=== PATIENT | female | born 1995 | race Hispanic/Latino ===

== ENCOUNTER 2020-10-26 22:07 | Emergency (ER) | payer BC, MEDICAID ==
[~2020-10-26 22:07] MED LIST: PREN1TAB89 PO
[2020-10-26 22:49] LABS: APPEARANCE,URINE Turbid (CLEAR); BILIRUBIN,URINE Negative (NEGATIVE); COLOR,URINE Yellow (YELLOW); GLUCOSE, URINE (UA) Negative (NEGATIVE); KETONES,URINE Negative (NEGATIVE); LEUKOCYTE ESTERASE ,URINE Trace (NEGATIVE); NITRATE,URINE Negative (NEGATIVE); OCCULT BLOOD,URINE Nonhemolyzed Trace (NEGATIVE); PH,URINE 7.5 (5.0-8.0); PROTEIN,URINE Negative (NEGATIVE); UROBILINOGEN,URINE 0.2 mg/dL (0.2-1.0)
[2020-10-26 22:51] LABS: HCG,QUAL RESULT NEGATIVE (NEGATIVE)
[2020-10-26] MEDS ORDERED: MORPHINE SULFATE 4 MG/1ML SYG ONE (22:59)
[2020-10-26] MEDS ORDERED: ONDANSETRON HCL 4 MG/2 ML VIAL ONE (22:59)
[2020-10-26] MEDS ORDERED: KETOROLAC TROMETHAMINE 30MG/ML ONE (22:59)
[2020-10-26] MEDS ORDERED: SODIUM CHLORIDE 0.9% 1000ML 1,000 ML IV ONE (23:00)
[2020-10-26 23:01] LABS: AMORPHOUS SEDIMENT,UR Many /LPF (None Seen); BACTERIA,URINE None Seen /HPF (None Seen); RBC,URINE None Seen /HPF (0-1); SQUAMOUS EPITHELIAL CELL,UR Few /HPF (0-2); WBC,URINE 0-1 /HPF (0-1)
[2020-10-26 23:15] LABS: BASOPHILS % (AUTO) 0.2 % (0.0-5.0); EOSINOPHILS % (AUTO) 0.1 % (0.0-8.0); HEMATOCRIT 38.3 % (36-48); MEAN CORPUSCULAR HEMOGLOBIN 25.3 pg (27.0-33.0); MEAN CORPUSCULAR HGB CONC 32.1 g/dL (32.0-36.0); MEAN CORPUSCULAR VOLUME 78.8 fL (79-99); MONOCYTES % (AUTO) 3.8 % (3.0-13.0); NEUTROPHILS % (AUTO) 85.4 % (40.0-77.0); PLATELET COUNT (AUTO) 293 K/uL (130-400); RED BLOOD CELL COUNT(AUTO) 4.86 MIL/uL (4.00-5.50); RED CELL DISTRIBUTION WIDTH 13.9 % (11.0-15.5); WHITE BLOOD COUNT (AUTO) 15.3 K/uL (4.8-10.8)
[2020-10-26] MEDS ORDERED: TAMSULOSIN HCL 0.4 MG CAP.ER.24H ONE (23:34)
[2020-10-26] MEDS ORDERED: CEFTRIAXONE SODIUM 1 GM ONE (23:34)
[2020-10-26 23:36] LABS: ALBUMIN 3.8 g/dL (3.5-5.0); BILIRUBIN,TOTAL 0.3 mg/dL (0.2-1.0); POTASSIUM 3.5 mmol/L (3.5-5.1); TOTAL PROTEIN, SERUM 8.1 g/dL (6.0-8.3)
== END 2020-10-26 23:57 | disposition home or self-care (01) ==
LOC: EDH 22:07
DX: N20.0 Calculus of kidney (principal); Z72.0 Tobacco use
CPT/HCPCS: 36415; 74176; 80053; 81001; 81025; 83690; 85025; 96361; 96374; 96375; 99284; J0696; J1885; J2270; J2405; J7030

== ENCOUNTER 2021-11-30 14:07 | Emergency (ER) | payer BC ==
[~2021-11-30] VITALS: Ht 172.7 cm; Wt 117.0 kg
[2021-11-30 14:33] LABS: APPEARANCE,URINE Cloudy (CLEAR); BILIRUBIN,URINE Negative (NEGATIVE); COLOR,URINE Yellow (YELLOW); GLUCOSE, URINE (UA) Negative (NEGATIVE); KETONES,URINE Negative (NEGATIVE); LEUKOCYTE ESTERASE ,URINE Small (NEGATIVE); NITRATE,URINE Negative (NEGATIVE); OCCULT BLOOD,URINE Negative (NEGATIVE); PROTEIN,URINE Negative (NEGATIVE)
[2021-11-30 14:50] LABS: BASOPHILS % (AUTO) 0.3 % (0.0-5.0); EOSINOPHILS % (AUTO) 1.1 % (0.0-8.0); HEMATOCRIT 38.2 % (36-48); LYMPHOCYTES % (AUTO) 22.1 % (21.0-51.0); MEAN CORPUSCULAR HEMOGLOBIN 25.6 pg (27.0-33.0); MEAN CORPUSCULAR HGB CONC 31.4 g/dL (32.0-36.0); MEAN CORPUSCULAR VOLUME 81.6 fL (79-99); MONOCYTES % (AUTO) 5.4 % (3.0-13.0); NEUTROPHILS % (AUTO) 70.8 % (40.0-77.0); PLATELET COUNT (AUTO) 252 K/uL (130-400); RED BLOOD CELL COUNT(AUTO) 4.68 MIL/uL (4.00-5.50); RED CELL DISTRIBUTION WIDTH 14.2 % (11.0-15.5); WHITE BLOOD COUNT (AUTO) 9.8 K/uL (4.8-10.8)
[2021-11-30 14:59] LABS: BACTERIA,URINE Few /HPF (None Seen); MUCUS,URINE Moderate LPF (None Seen); SQUAMOUS EPITHELIAL CELL,UR Moderate /HPF (0-2)
[2021-11-30 15:07] LABS: CREATININE 0.7 mg/dL (0.5-1.5); POTASSIUM 3.3 mmol/L (3.5-5.1)
[2021-11-30 15:12] LABS: ALBUMIN 3.3 g/dL (3.5-5.0); BILIRUBIN,TOTAL 0.2 mg/dL (0.2-1.0); TOTAL PROTEIN, SERUM 7.4 g/dL (6.0-8.3)
[2021-11-30 15:34] LABS: HCG,QUAL RESULT NEGATIVE (NEGATIVE)
[2021-11-30 15:40] LABS: AMPHET/METH SCREEN,URINE NEGATIVE (NEGATIVE); BARBITURATE SCREEN, URINE NEGATIVE (NEGATIVE); BENZODIAZEPINES SCREEN,URINE NEGATIVE (NEGATIVE); CANNABINOID SCREEN,URINE NEGATIVE (NEGATIVE); COCAINE SCREEN,URINE NEGATIVE (NEGATIVE); OPIATE SCREEN,URINE NEGATIVE (NEGATIVE); PHENCYCLIDINE SCREEN,URINE NEGATIVE (NEGATIVE)
[2021-11-30] MEDS ORDERED: LORAZEPAM 2 MG/ML 1 ML VIAL IVP ONE (16:30)
[2021-11-30] MEDS ORDERED: 0.9%NACL 1000ML 1,000 ML IV ONE (16:30)
[2021-11-30] MEDS ORDERED: HYDR-3422 PO (17:47)
[2021-11-30] MEDS ORDERED: POTASSIUM BICARB/CIT AC 25 MEQ TABLET.EFF PO ONE (18:00)
[2021-11-30 18:13] VITALS: BP 116/74
== END 2021-11-30 18:28 | disposition home or self-care (01) ==
LOC: EDH 14:07
DX: F41.9 Anxiety disorder, unspecified (principal); Z20.822 Contact with and (suspected) exposure to COVID-19; Z79.899 Other long term (current) drug therapy
CPT/HCPCS: 36415; 71045; 80053; 80305; 81001; 81025; 85025; 87088; 87635; 87804 ×2; 93005; 96361; 96374; 99284; C9803; J2060; J7030

== ENCOUNTER 2021-12-20 00:10 | Emergency (ER) | payer BC ==
[~2021-12-20] VITALS: Ht 172.7 cm; Wt 118.8 kg
[~2021-12-20 00:10] MED LIST changes: +HYDR-3422 PO
[2021-12-20] MEDS ORDERED: MAG/ALUM/SIMETH 30 ML UDCUP PO ONE (01:30)
[2021-12-20] MEDS ORDERED: LIDOCAINE HCL 2% VISCOUS 15 ML UDCUP PO ONE (01:30)
[2021-12-20] MEDS ORDERED: DICYCLOMINE HCL 10 MG/5 ML ML PO ONE (01:30)
[2021-12-20] MEDS ORDERED: ESOM20CA31 PO (01:34)
[2021-12-20] MEDS ORDERED: MAG-55 PO (01:34)
[2021-12-20 01:38] VITALS: BP 118/78
== END 2021-12-20 01:46 | disposition home or self-care (01) ==
LOC: EDH 00:10
DX: K21.9 Gastro-esophageal reflux disease without esophagitis (principal); R07.89 Other chest pain; K30 Functional dyspepsia; Z79.899 Other long term (current) drug therapy

== ENCOUNTER 2022-01-01 04:12 | Emergency (ER) | payer BC ==
[~2022-01-01] VITALS: Ht 175.3 cm; Wt 118.4 kg
[~2022-01-01 04:12] MED LIST changes: +ESOM20CA31 PO; +MAG-55 PO
[2022-01-01 08:09] LABS: APPEARANCE,URINE CLOUDY (CLEAR); BILIRUBIN,URINE NEGATIVE (NEGATIVE); COLOR,URINE YELLOW (YELLOW); GLUCOSE, URINE (UA) NEGATIVE (NEGATIVE); KETONES,URINE NEGATIVE (NEGATIVE); LEUKOCYTE ESTERASE ,URINE NEGATIVE (NEGATIVE); NITRATE,URINE NEGATIVE (NEGATIVE); OCCULT BLOOD,URINE NEGATIVE (NEGATIVE); PH,URINE 6.5 (5.0-8.0); PROTEIN,URINE NEGATIVE (NEGATIVE); UROBILINOGEN,URINE 0.2 mg/dL (0.2-1.0)
[2022-01-01 08:10] LABS: HCG,QUAL RESULT NEGATIVE (NEGATIVE)
[2022-01-01 08:16] LABS: BASOPHILS % (AUTO) 0.2 % (0.0-5.0); EOSINOPHILS % (AUTO) 1.3 % (0.0-8.0); HEMATOCRIT 39.4 % (36-48); LYMPHOCYTES % (AUTO) 26.6 % (21.0-51.0); MEAN CORPUSCULAR HEMOGLOBIN 25.3 pg (27.0-33.0); MEAN CORPUSCULAR HGB CONC 31.5 g/dL (32.0-36.0); MEAN CORPUSCULAR VOLUME 80.4 fL (79-99); MONOCYTES % (AUTO) 5.6 % (3.0-13.0); PLATELET COUNT (AUTO) 251 K/uL (130-400); RED CELL DISTRIBUTION WIDTH 13.6 % (11.0-15.5); WHITE BLOOD COUNT (AUTO) 10.7 K/uL (4.8-10.8)
[2022-01-01 08:17] LABS: AMORPHOUS SEDIMENT,UR Many /LPF (None Seen); BACTERIA,URINE Moderate /HPF (None Seen); FINE GRANULAR CASTS,URINE 0-2 /LPF (None Seen); RBC,URINE None Seen /HPF (0-1); WBC,URINE 0-1 /HPF (0-1)
[2022-01-01 08:18] LABS: COARSE GRANULAR CASTS,URINE 0-2 /LPF (None Seen)
[2022-01-01 08:26] LABS: CREATININE 0.7 mg/dL (0.5-1.5); POTASSIUM 3.8 mmol/L (3.5-5.1)
[2022-01-01 08:30] LABS: ALBUMIN 3.3 g/dL (3.5-5.0); BILIRUBIN,TOTAL 0.2 mg/dL (0.2-1.0); TOTAL PROTEIN, SERUM 7.6 g/dL (6.0-8.3)
[2022-01-01] MEDS ORDERED: IBUP-2070 PO (09:46)
[2022-01-01 09:58] VITALS: BP 120/78
== END 2022-01-01 09:54 | disposition home or self-care (01) ==
LOC: EDH 04:12
DX: K80.50 Calculus of bile duct without cholangitis or cholecystitis without obstruction (principal)
CPT/HCPCS: 36415; 76705; 80053; 81001; 81025; 82150; 85025; 87088

== ENCOUNTER 2022-06-14 11:31 | Emergency (ER) | payer BC ==
[~2022-06-14] VITALS: Ht 175.3 cm; Wt 117.9 kg
[~2022-06-14 11:31] MED LIST changes: +IBUP-2070 PO
[2022-06-14 13:05] LABS: BASOPHILS % (AUTO) 0.4 % (0.0-5.0); EOSINOPHILS % (AUTO) 1.1 % (0.0-8.0); HEMATOCRIT 40.3 % (36-48); LYMPHOCYTES % (AUTO) 29.2 % (21.0-51.0); MEAN CORPUSCULAR HEMOGLOBIN 25.5 pg (27.0-33.0); MEAN CORPUSCULAR HGB CONC 32.3 g/dL (32.0-36.0); MEAN CORPUSCULAR VOLUME 79.2 fL (79-99); MONOCYTES % (AUTO) 6.2 % (3.0-13.0); NEUTROPHILS % (AUTO) 62.9 % (40.0-77.0); PLATELET COUNT (AUTO) 279 K/uL (130-400); RED BLOOD CELL COUNT(AUTO) 5.09 MIL/uL (4.00-5.50); RED CELL DISTRIBUTION WIDTH 13.9 % (11.0-15.5)
[2022-06-14 13:11] LABS: APPEARANCE,URINE CLEAR (CLEAR); BILIRUBIN,URINE NEGATIVE (NEGATIVE); COLOR,URINE YELLOW (YELLOW); GLUCOSE, URINE (UA) NEGATIVE (NEGATIVE); KETONES,URINE NEGATIVE (NEGATIVE); LEUKOCYTE ESTERASE ,URINE NEGATIVE Leu/uL (NEGATIVE); NITRATE,URINE NEGATIVE (NEGATIVE); OCCULT BLOOD,URINE LARGE (NEGATIVE); PH,URINE 6.5 (5.0-8.0); PROTEIN,URINE 20 mg/dL (NEGATIVE); UROBILINOGEN,URINE 0.2 mg/dL (0.2-1.0)
[2022-06-14 13:15] LABS: MUCUS,URINE RARE LPF (None Seen); SQUAMOUS EPITHELIAL CELL,UR RARE /HPF (0-2)
[2022-06-14 13:18] LABS: CREATININE 0.7 mg/dL (0.5-1.5)
[2022-06-14 13:23] LABS: ALBUMIN 3.7 g/dL (3.5-5.0); TOTAL PROTEIN, SERUM 8.3 g/dL (6.0-8.3)
[2022-06-14] MEDS ORDERED: CYCL10TA16 PO (13:47)
[2022-06-14] MEDS ORDERED: IBUP-2070 PO (13:47)
[2022-06-14] MEDS ORDERED: KETOROLAC 30MG VIAL (30MG/ML) IM ONE (14:00)
[2022-06-14] MEDS ORDERED: CYCLOBENZAPRINE HCL 10 MG TABLET PO ONE (14:00)
[2022-06-14 16:44] VITALS: BP 133/69
== END 2022-06-14 14:10 | disposition home or self-care (01) ==
LOC: EDH 11:31
DX: M62.830 Muscle spasm of back (principal); Z79.1 Long term (current) use of non-steroidal anti-inflammatories (NSAID); Z79.899 Other long term (current) drug therapy
CPT/HCPCS: 99284; 72131; 80053; 85025; 81001; 36415; 96372; J1885

== ENCOUNTER 2022-11-23 01:45 | Emergency (ER) | payer BC ==
[~2022-11-23] VITALS: Ht 175.3 cm; Wt 111.6 kg
[~2022-11-23 01:45] MED LIST changes: +CYCL10TA16 PO
[2022-11-23] MEDS ORDERED: ONDANSETRON 4MG TABLET PO ONE (05:00)
[2022-11-23] MEDS ORDERED: ONDANSETRON 4MG INJ ONE (05:16)
[2022-11-23 05:17] LABS: BASOPHILS % (AUTO) 0.2 % (0.0-5.0); EOSINOPHILS % (AUTO) 0.4 % (0.0-8.0); LYMPHOCYTES % (AUTO) 13.1 % (21.0-51.0); MEAN CORPUSCULAR HEMOGLOBIN 25.5 pg (27.0-33.0); MEAN CORPUSCULAR HGB CONC 31.5 g/dL (32.0-36.0); MEAN CORPUSCULAR VOLUME 80.9 fL (79-99); MONOCYTES % (AUTO) 4.2 % (3.0-13.0); NEUTROPHILS % (AUTO) 81.7 % (40.0-77.0); PLATELET COUNT (AUTO) 283 K/uL (130-400); RED BLOOD CELL COUNT(AUTO) 4.82 MIL/uL (4.00-5.50); RED CELL DISTRIBUTION WIDTH 13.9 % (11.0-15.5)
[2022-11-23 05:30] LABS: CREATININE 0.8 mg/dL (0.5-1.5); POTASSIUM 3.6 mmol/L (3.5-5.1)
[2022-11-23 05:34] LABS: ALBUMIN 3.8 g/dL (3.5-5.0); TOTAL PROTEIN, SERUM 8.1 g/dL (6.0-8.3)
[2022-11-23] MEDS ORDERED: IBUP-2070 PO (08:28)
[2022-11-23] MEDS ORDERED: DICY10 PO (08:28)
[2022-11-23] MEDS ORDERED: ONDA4TAB10 PO (08:29)
[2022-11-23 08:48] VITALS: BP 136/78
== END 2022-11-23 08:49 | disposition home or self-care (01) ==
LOC: EDH 01:45
DX: K80.50 Calculus of bile duct without cholangitis or cholecystitis without obstruction (principal)
CPT/HCPCS: 99284; 76705; 80053; 83690; 85025; 36415; J2405